=== PATIENT | female | born 1985 | race Caucasian/White ===

== ENCOUNTER 2021-09-07 22:04 | Emergency (ER) | payer OTHER | END 2021-09-08 00:13 | disposition left against medical advice (07) | LOC: CSHERS 22:04 | DX: Z53.21 Procedure and treatment not carried out due to patient leaving prior to being seen by health care provider (principal) ==

== ENCOUNTER 2021-09-15 14:52 | Emergency (ER) | payer OTHER ==
[2021-09-16 16:55] LABS: SARS-CoV-2 PCR by NAA DETECTED (NotDetected)
== END 2021-09-15 19:08 | disposition home or self-care (01) ==
LOC: CSHERS 14:52
DX: U07.1 COVID-19 (principal); K04.7 Periapical abscess without sinus; J45.909 Unspecified asthma, uncomplicated
CPT/HCPCS: 99283; U0003; U0005

== ENCOUNTER 2022-04-26 22:48 | Emergency (ER) | payer OTHER ==
[2022-04-26 23:29] LABS: Bilirubin Neg (Negative); Blood, Urine 10 (Negative); Clarity Clear (Clear); Glucose, Urine (Dipstick) Normal (Negative); Ketone, Urine Negative (Negative); Leukocyte Negative (Negative); Nitrite Negative (Negative); Protein, Urine (Dipstick) Negative (Neg-Trace)
[2022-04-26 23:33] LABS: Pregnancy Test - Urine (BHCG) Negative (Negative); Pregu Control Background? CLEAR/WHITE (CLR/WHITE); Pregu Control Bar Appear? YES (CONTROL BAR)
[2022-04-26 23:39] LABS: Bacteria/HPF Rare-Few HPF (None Seen); RBC/HPF 0-3 HPF (0-3); Squamous Epithelial 0-3 HPF (0-3)
== END 2022-04-26 23:59 | disposition home or self-care (01) ==
LOC: CSHERS 22:48
DX: K02.9 Dental caries, unspecified (principal); K04.7 Periapical abscess without sinus; R10.32 Left lower quadrant pain
CPT/HCPCS: 81003; 81015; 81025; 99284